=== PATIENT | female | born 1990 | race Caucasian/White ===

== ENCOUNTER 2022-07-20 22:46 | Emergency (ER) | payer OTHER ==
[~2022-07-20] VITALS: Ht 162.6 cm; Wt 120.2 kg
[2022-07-21] MEDS ORDERED: PHENAGIL TABLE1 EACH PO (05:48)
[2022-07-21] MEDS ORDERED: SINGULAIR 10MG10 MG PO (05:48)
[2022-07-21] MEDS ORDERED: ZITHROMAX500 MG PO (05:48)
[2022-07-21] MEDS ORDERED: ZYNCOF 20-400120 ML PO (05:48)
== END 2022-07-21 06:06 ==
LOC: ER 22:46
DX: J06.9 Acute upper respiratory infection, unspecified (principal); Z20.822 Contact with and (suspected) exposure to COVID-19